=== PATIENT | female | born 1970 | race Caucasian/White ===

== ENCOUNTER 2016-05-21 12:34 | Outpatient (CLI) | payer BC ==
[~2016-05-21 12:34] MED LIST: ESCITALOPRAM OX20 MG PO; IMODIUM A-D2 MG PO; LEVOTHYROXINE75 MCG PO; NABUMETONE500 MG PO; NEURONTIN300 MG PO; OXYBUTYNIN CHLO10 MG PO; PREMPRO1 TA1 PO; PROTONIX40 MG PO; ROPINIROLE HCL1 MG PO
== END 2016-05-21 23:00 ==
LOC: LAB SRH 12:34
DX: Z01.812 Encounter for preprocedural laboratory examination (principal); N39.3 Stress incontinence (female) (male)
CPT/HCPCS: 90047; 90074; 95059

== ENCOUNTER 2016-05-23 08:17 | Day surgery (SDC) | payer BC ==
[~2016-05-23] VITALS: Ht 171.4 cm; Wt 96.0 kg
--- NOTE | 2016-05-23 11:14 | Provider's Discharge Care Plan ---
Problem, Goal, Plan Problem List 1. Stress incontinence Goals: Improve function Instructions: Follow up as directed, Stop smoking
--- NOTE | 2016-05-23 11:14 | Provider's Discharge Care Plan ---
Problem, Goal, Plan Problem List 1. Stress incontinence Goals: Improve function Instructions: Follow up as directed, Stop smoking
--- NOTE | 2016-05-23 12:47 | Operative Report ---
Operative Report Date of Surgery: 05/23/16 Preoperate Diagnosis: stress incontinence Postoperative Diagnosis: stress incontinence Surgeon: Jhon Jacobson MD Pet Care Technician Surgeon: none Procedure Performed: tension-free vaginal tape obturator (TVT-O) sling and cystoscopy Anesthesia: GA Indications: Her assessment to date includes: 1. Vaginal atrophy N95.2 (627.3): 2. Symptomatic menopausal or female climacteric states N95.1 (627.2): 3. Stress incontinence in female N39.3 (625.6): noted on urodynamics The patient is interested in surgical management. She is a candidate for a TVT- obturator mid-urethral sling as stress incontinence is found on UDS testing. The patient signed the consent form. She agreed with the risks, benefits, and alternatives to surgery. The risks included but not limited to recurrence or persistence of prolapse, recurrence of persistence of incontinence, development of voiding dysfunction, development of urinary urgency, urgency incontinence, frequency, and need for intermittent self-catheterization or prolonged indwelling catheterization, injury to other organs including bladder, bowel, nerves or blood vessels. Need for blood transfusion, need for The patient is interested in surgical management. She is a candidate for a TVT-obturator mid-urethral sling as stress incontinence is found on UDS testing. The patient signed the consent form. She agreed with the risks, benefits, and alternatives to surgery. The risks included but not limited to recurrence or persistence of prolapse, recurrence of persistence of incontinence, development of voiding dysfunction, development of urinary urgency, urgency incontinence, frequency, and need for intermittent self-catheterization or prolonged indwelling catheterization, injury to other organs including bladder, bowel, nerves or blood vessels. Need for blood transfusion, need for Surgical Technique: TVT-Obturator sling and cystoscopy. Patient was brought to OR and placed under general anesthetia. Prepped and draped in usual fashion for vaginal surgery with legs in YellowFin stirrups, in the supine position. Given a dose of IV antibiotics. Marcaine 0.25% with epinephrine was infiltrated along the anterior vaginal wall mucosa at the level of the mid urethra. Midline vertical incision was made at that level, 2 periurethral tunnels were created with Metzenbaum scissors. Two stab incisions were created at the skin at the groin at a level 2 cm superior to the external urethral meatus and 2 cm lateral to the fold created between the vulva and thigh. Vizcarra catheter had already been inserted. A butterfly guide was inserted into the right periurethral tunnel, a curved helical needle was inserted on top of the guide and rotated out to the ipsilateral skin incision. The same procedure was performed on the contralateral side. Next the Vizacrra catheter was removed. Cystoscopy was performed. There was no inadvertent penetration of the sling to the vagina, urethra or bladder. The bladder appeared normal. The plastic sheaths of the sling were removed. The bladder was filled with 300 mL of sterile water. Using the Crude maneuver, sling tension was appropriately adjusted. Also a right angle clamp was allowed to easily pass behind the sling so that the sling was placed in a tension-free manner. The sling ends were cut at the level of the skin. The skin was reapproximated using Mastisol, Steri-Strips and band-aids. The vagina was reapproximated using 3-0 Vicryl suture in a running fashion. Packing inserted. Tolerated procedure well. EBL 50 ml. Taken to recovery in stable condition.
[2016-05-23 13:24] VITALS: BP 122/76
== END 2016-05-23 13:48 | disposition home or self-care (01) ==
LOC: OR SRH 08:17 → SCU SRH 08:21 → OR SRH 10:00
PROVIDERS: Obstetrics & Gynecology
PROC: 0TSD0ZZ Reposition Urethra, Open Approach (ICD-10-PCS; principal; 2016-05-23 10:00)
DX: N39.3 Stress incontinence (female) (male) (principal); Z72.0 Tobacco use
CPT/HCPCS: 29229; 29240; 50004; 60001; 70002; 80102; 80212; 82956; 83630; 84038; 90001; 90074; 90155; 91004

== ENCOUNTER 2016-07-06 10:12 | Outpatient (CLI) | payer BC | END 2016-07-06 23:00 | LOC: LAB SRH 10:12 | DX: N93.9 Abnormal uterine and vaginal bleeding, unspecified (principal) | CPT/HCPCS: 90074; 93045; 93069; 93075; 93140; 94001; 94060; 95059 ==

== ENCOUNTER 2016-08-12 10:51 | Outpatient (CLI) | payer BC ==
--- NOTE | 2016-08-12 13:28 | DIAGNOSTIC IMAGING REPORT ---
PROCEDURE: US COMPLETE PELVIC W/TRANSVAG INDICATION: ABNORMAL UTERINE BLEEDING TECHNIQUE: Transabdominal and endovaginal eagle scale sonographic images of the female pelvis were obtained. COMPARISON: None. FINDINGS: TRANSABDOMINAL SCANS: Anteverted uterus measures 4.5 cm in length. Normal contour and echotexture. Normal adnexa without suspicious mass. The visible portion of the urinary bladder is normal. No significant free pelvic fluid. TRANSVAGINAL SCANS: The uterus is anteverted and vertically oriented in position and has a fairly homogeneous myometrial echotexture. There are a few small Nabothian cysts in the cervix. The uterus measures about 4.7 x 3.2 x 2.5 cm. The fundus is slightly retroflexed. The visible fundal endometrium measures about 5.4 mm in thickness. No endometrial fluid collections or suspicious masses. The ovaries were not seen. No suspicious adnexal masses or free pelvic fluid. IMPRESSION: 1. The fundal endometrium was suboptimally seen secondary to slight retroflexion of the uterine fundus. Nonetheless, it is estimated to be at the upper limits of normal for postmenopausal female with uterine bleeding. 2. Nonvisualization of either ovary.
== END 2016-08-12 23:00 ==
LOC: US SRH 10:51
DX: N93.9 Abnormal uterine and vaginal bleeding, unspecified (principal)

== ENCOUNTER 2016-10-01 15:26 | Emergency (ER) | payer BC ==
--- NOTE | 2016-10-01 17:18 | DIAGNOSTIC IMAGING REPORT ---
PROCEDURE: XR CHEST 1 VIEW INDICATION: CHEST PAIN TECHNIQUE: Portable AP view (1605 hours). COMPARISON: None. FINDINGS: Allowing for overlying wires and electrodes, lungs are clear. Heart and mediastinum are normal. Mild dextroscoliosis of mid thoracic spine. IMPRESSION: 1. Negative chest.
--- NOTE | 2016-10-01 17:37 | ED NURSING NOTES ---
Clinical Report - Nurses [facility] [place] [address] 10/01/2016 15:27 Patient: GINNY BOLAÑOS TRIAGE Acuity: LEVEL 2. Chief Complaint: CHEST PAIN and (weakness). Alert. No acute distress. SEPSIS SCREEN: Sepsis Screen. Negative (no infection suspected/documented). --15:53 Lynn Miller R.N. 15:44 10/01/16. BP: 143/80. HR: 95. RR: 18. O2 saturation: 95% on room air. Temp: 98 F (oral). Pain level now: 0/10. --15:53 Lynn Miller R.N. Weight: 92.5 kg stated. Height/Length: 67 inches Per Patient. BMI: 32. --15:51 Lynn Miller R.N. Medications Oxybutynin Chloride Oral. --15:46 Lynn Miller R.N. Levothyroxine Sodium Oral. --15:46 Lynn Miller R.N. Gabapentin Oral. --15:46 Lynn Miller R.N. Imodium Advanced Oral. --15:46 Lynn Miller R.N. Omeprazole Oral. --15:47 Lynn Miller R.N. Medication/allergy information source: the patient. --15:53 Lynn Miller R.N. Allergies morphine. --15:47 Lynn Miller R.N. Penicillins. --15:47 Lynn Miller R.N. History Arrived by private vehicle. Historian: patient. Accompanied by (aunt). Primary physician ([facility] [place] [facility]). This started yesterday. Describes the quality as sharp. Relates location as in the central chest area and right and left arm. Notes pain level as 0/10 on arrival. She has had difficulty breathing. Reports experiencing sweating episodes. No nausea or vomiting. Treatment QUALITY PROCESS LEAD: None. SOCIAL HX: Heavy tobacco smoker (cigarette)- 1 pack per day. Occasional alcohol use. History of drug use: marijuana. (CBD oil). FALL RISK ASSESSMENT: Fall risk assessment completed. No fall risk identified. NUTRITIONAL RISK ASSESSMENT: The nutritional risk assessment revealed no deficiencies. FUNCTIONAL ASSESSMENT: Functional assessment: no impairments noted. LEARNING NEEDS ASSESSMENT: The learning needs assessment revealed no barriers. SKIN INTEGRITY ASSESSMENT: Skin integrity risk assessment completed. No skin integrity risk identified. --15:53 Lynn Miller R.N. PROBLEMS: Lupus. Thyroid Disease. Fibromyalgia. --15:49 Lynn Miller R.N. ADDITIONAL SURGERIES: Bladder mesh. . Foot surgery. Shoulder Surgery. Tubal Ligation. --15:49 Lynn Miller R.N. Assessment GENERAL / NEURO / PSYCH: Alert. Oriented X 4. Appears in no acute distress. Patient appears calm and cooperative. RESPIRATORY: Respirations not labored. CVS: Normal sinus rhythm noted. Capillary refill less than 2 seconds. GI / : Abdomen soft and nontender. SKIN: Mucous membranes are pink. Skin is warm and dry. --15:53 Lynn Miller R.N. Interventions ID band on patient. To treatment room. Transported via wheelchair. --15:53 Lynn Miller R.N. PHYSICAL ASSESSMENT 15:54 10/01/16. To room via wheelchair. GENERAL / NEURO / PSYCH: Alert. Oriented X 4. Appears in no acute distress. HEENT: Mucous membranes are pink. RESPIRATORY: Respirations not labored. CVS: Normal sinus rhythm noted. Capillary refill less than 2 seconds. GI / : Abdomen soft and nontender. EXTREMITIES: No lower extremity edema. SKIN: Skin is warm and dry. Normal skin turgor. Skin is non-tender. --15:54 Lynn Miller R.N. NURSING PROGRESS NOTES 15:53 10/01/16. Oxygen administered by nasal cannula at 2 liters. groundwater monitoring technician, pulse oximeter and NIBP monitor placed on patient; personnel monitor- Lead II; monitor alarms on. Patient gowned. Two patient identifiers checked. Call light placed in reach. Side rails up x 1. Bed placed in lowest position. Brakes of bed on. Patient ready for evaluation- chart flagged and ED physician and PSYCHOLOGICAL OPERATIONS SPECIALIST notified. --15:53 Lynn Miller R.N. 15:55 10/01/2016 Site #1 started via IV in the right antecubital space with an 20g angiocath, with aseptic technique and good blood return; one attempt. Saline lock flushed with 10 mL saline. --15:55 Lynn Miller R.N. <<STRICKEN ENTRY-- EKG time: (1548). EKG was ordered, performed by a tech and shown to the ED physician. --16:32 Hector Negro ER Tech1 --END STRIKE>> Correction --16:33 Hector Negro ER Tech1 EKG time: (1548). EKG was ordered, performed by a tech and shown to the PSYCHOLOGICAL OPERATIONS SPECIALIST. --16:33 Hector Negro ER Tech1 17:29 10/01/16. BP: 115/75. HR: 88. RR: 16. O2 saturation: 95% on nasal cannula at 2 liters/minute. --17:29 Lynn Miller R.N. DISPOSITION / DISCHARGE Departure time: 18:00 Oct 01 2016. Condition at departure: improved and stable. No learning barriers present. Discharge instructions provided and reviewed with the patient. Reviewed medication(s). Prescription(s) given to the patient. Patient verbalized understanding. Written instructions provided in Kiswahili. The patient was discharged by the nurse practitioner. She was discharged home and accompanied by family. She left the Emergency Department ambulatory and via private vehicle. Family member driving. --18:16 Lynn Miller R.N. 18:14 10/01/16. BP: 122/76. HR: 86. RR: 18. O2 saturation: 100% on room air. Temp: 98.2 F (oral). Pain level now: 0/10. --18:16 Lynn Miller R.N. 18:00 10/01/2016 Site #1 removed upon discharge. Catheter intact. Manual pressure and bandage applied. --18:16 Lynn Miller R.N. Locked/Released at 10/01/2016 18:16 by Lynn Miller R.N.
--- NOTE | 2016-10-01 17:37 | ED ORDER SUMMARY ---
..... Patient: GINNY BOLAÑOS OrderSheet VisitID: [id number] [address] [place] [address] 45y, F Registration Date/Time: 10/01/2016 ORDER SHEET Weight: 92.5 kg (stated) Allergies: morphine, Penicillins GENERAL ORDERS: Chest 1V Urgent (15:55 10/01/2016 MWinterer R.N. per protocol) (Ack 16:02 PWeiler ER Tech1) (16:08 Richard) Scientific Research Associate (Continuous) (15:56 10/01/2016 MWinterer R.N. per protocol) (15:56 MWinterer R.N.) Cardiac Panel Stat (15:56 10/01/2016 MWinterer R.N. per protocol) (Ack 16:02 PWeiler ER Tech1) (16:15 MWinterer R.N.) Oxygen (2 L/min) (NC) (15:56 10/01/2016 MWinterer R.N. per protocol) (15:56 MWinterer R.N.) Pulse oximeter (15:56 10/01/2016 MWinterer R.N. per protocol) (15:56 MWinterer R.N.) EKG - ER Stat (15:56 10/01/2016 MWinterer R.N. per protocol) (15:56 MWinterer R.N.) MEDICATION ORDERS: IV FLUIDS: IV Saline Lock (15:56 10/01/2016 MWinterer R.N. per protocol) (15:56 MWinterer R.N.) ORDER SHEET NOTES: [Electronically signed by Lynn Miller R.N. (18:16 10/01/2016)] [Electronically signed by Kristin Humphries (22:58 10/01/2016)] [Electronically locked/signed by Lynn Miller R.N. (18:16 10/01/2016)]
--- NOTE | 2016-10-01 17:37 | ED ORDER SUMMARY ---
..... Patient: GINNY BOLAÑOS OrderSheet [facility] VisitID: [id number] [address] [place] [address] 45y, F Registration Date/Time: 10/01/2016 ORDER SHEET Weight: 92.5 kg (stated) Allergies: morphine, Penicillins GENERAL ORDERS: Chest 1V Urgent (15:55 10/01/2016 MWinterer R.N. per protocol) (Ack 16:02 PWeiler ER Tech1) (16:08 Richard) Solid State Tester (Continuous) (15:56 10/01/2016 MWinterer R.N. per protocol) (15:56 MWinterer R.N.) Cardiac Panel Stat (15:56 10/01/2016 MWinterer R.N. per protocol) (Ack 16:02 PWeiler ER Tech1) (16:15 MWinterer R.N.) Oxygen (2 L/min) (NC) (15:56 10/01/2016 MWinterer R.N. per protocol) (15:56 MWinterer R.N.) Pulse oximeter (15:56 10/01/2016 MWinterer R.N. per protocol) (15:56 MWinterer R.N.) EKG - ER Stat (15:56 10/01/2016 MWinterer R.N. per protocol) (15:56 MWinterer R.N.) MEDICATION ORDERS: IV FLUIDS: IV Saline Lock (15:56 10/01/2016 MWinterer R.N. per protocol) (15:56 MWinterer R.N.) ORDER SHEET NOTES: [Electronically signed by Lynn Miller R.N. (18:16 10/01/2016)] [Electronically signed by Kristin Humphries (22:58 10/01/2016)] [Electronically locked/signed by Lynn Miller R.N. (18:16 10/01/2016)]
--- NOTE | 2016-10-01 17:37 | ED NURSING NOTES ---
Clinical Report - Nurses [facility] [place] [address] 10/01/2016 15:27 Patient: GINNY BOLAÑOS TRIAGE Acuity: LEVEL 2. Chief Complaint: CHEST PAIN and (weakness). Alert. No acute distress. SEPSIS SCREEN: Sepsis Screen. Negative (no infection suspected/documented). --15:53 Lynn Miller R.N. 15:44 10/01/16. BP: 143/80. HR: 95. RR: 18. O2 saturation: 95% on room air. Temp: 98 F (oral). Pain level now: 0/10. --15:53 Lynn Miller R.N. Weight: 92.5 kg stated. Height/Length: 67 inches Per Patient. BMI: 32. --15:51 Lynn Miller R.N. Medications Oxybutynin Chloride Oral. --15:46 Lynn Miller R.N. Levothyroxine Sodium Oral. --15:46 Lynn Miller R.N. Gabapentin Oral. --15:46 Lynn Miller R.N. Imodium Advanced Oral. --15:46 Lynn Miller R.N. Omeprazole Oral. --15:47 Lynn Miller R.N. Medication/allergy information source: the patient. --15:53 Lynn Miller R.N. Allergies morphine. --15:47 Lynn Miller R.N. Penicillins. --15:47 Lynn Miller R.N. History Arrived by private vehicle. Historian: patient. Accompanied by (aunt). Primary physician ([facility] [place] [facility]). This started yesterday. Describes the quality as sharp. Relates location as in the central chest area and right and left arm. Notes pain level as 0/10 on arrival. She has had difficulty breathing. Reports experiencing sweating episodes. No nausea or vomiting. Treatment DIESEL FITTER MECHANIC: None. SOCIAL HX: Heavy tobacco smoker (cigarette)- 1 pack per day. Occasional alcohol use. History of drug use: marijuana. (CBD oil). FALL RISK ASSESSMENT: Fall risk assessment completed. No fall risk identified. NUTRITIONAL RISK ASSESSMENT: The nutritional risk assessment revealed no deficiencies. FUNCTIONAL ASSESSMENT: Functional assessment: no impairments noted. LEARNING NEEDS ASSESSMENT: The learning needs assessment revealed no barriers. SKIN INTEGRITY ASSESSMENT: Skin integrity risk assessment completed. No skin integrity risk identified. --15:53 Lynn Miller R.N. PROBLEMS: Lupus. Thyroid Disease. Fibromyalgia. --15:49 Lynn Miller R.N. ADDITIONAL SURGERIES: Bladder mesh. . Foot surgery. Shoulder Surgery. Tubal Ligation. --15:49 Lynn Miller R.N. Assessment GENERAL / NEURO / PSYCH: Alert. Oriented X 4. Appears in no acute distress. Patient appears calm and cooperative. RESPIRATORY: Respirations not labored. CVS: Normal sinus rhythm noted. Capillary refill less than 2 seconds. GI / : Abdomen soft and nontender. SKIN: Mucous membranes are pink. Skin is warm and dry. --15:53 Lynn Miller R.N. Interventions ID band on patient. To treatment room. Transported via wheelchair. --15:53 Lynn Miller R.N. PHYSICAL ASSESSMENT 15:54 10/01/16. To room via wheelchair. GENERAL / NEURO / PSYCH: Alert. Oriented X 4. Appears in no acute distress. HEENT: Mucous membranes are pink. RESPIRATORY: Respirations not labored. CVS: Normal sinus rhythm noted. Capillary refill less than 2 seconds. GI / : Abdomen soft and nontender. EXTREMITIES: No lower extremity edema. SKIN: Skin is warm and dry. Normal skin turgor. Skin is non-tender. --15:54 Lynn Miller R.N. NURSING PROGRESS NOTES 15:53 10/01/16. Oxygen administered by nasal cannula at 2 liters. litigation legal assistant, pulse oximeter and NIBP monitor placed on patient; cardiac catheterization technologist- Lead II; monitor alarms on. Patient gowned. Two patient identifiers checked. Call light placed in reach. Side rails up x 1. Bed placed in lowest position. Brakes of bed on. Patient ready for evaluation- chart flagged and ED physician and OVERLOCK OPERATOR notified. --15:53 Lynn Miller R.N. 15:55 10/01/2016 Site #1 started via IV in the right antecubital space with an 20g angiocath, with aseptic technique and good blood return; one attempt. Saline lock flushed with 10 mL saline. --15:55 Lynn Miller R.N. <<STRICKEN ENTRY-- EKG time: (1548). EKG was ordered, performed by a tech and shown to the ED physician. --16:32 Hector Negro ER Tech1 --END STRIKE>> Correction --16:33 Hector Negro ER Tech1 EKG time: (1548). EKG was ordered, performed by a tech and shown to the OVERLOCK OPERATOR. --16:33 Hector Negro ER Tech1 17:29 10/01/16. BP: 115/75. HR: 88. RR: 16. O2 saturation: 95% on nasal cannula at 2 liters/minute. --17:29 Lynn Miller R.N. DISPOSITION / DISCHARGE Departure time: 18:00 Oct 01 2016. Condition at departure: improved and stable. No learning barriers present. Discharge instructions provided and reviewed with the patient. Reviewed medication(s). Prescription(s) given to the patient. Patient verbalized understanding. Written instructions provided in Azeri. The patient was discharged by the nurse practitioner. She was discharged home and accompanied by family. She left the Emergency Department ambulatory and via private vehicle. Family member driving. --18:16 Lynn Miller R.N. 18:14 10/01/16. BP: 122/76. HR: 86. RR: 18. O2 saturation: 100% on room air. Temp: 98.2 F (oral). Pain level now: 0/10. --18:16 Lynn Miller R.N. 18:00 10/01/2016 Site #1 removed upon discharge. Catheter intact. Manual pressure and bandage applied. --18:16 yLnn Miller R.N. Locked/Released at 10/01/2016 18:16 by Lynn Miller R.N.
--- NOTE | 2016-10-01 17:37 | ED CLINICAL REPORT ---
Clinical Report - Physicians/Mid Levels [facility] [address] [place] [address] 10/01/2016 15:27 Patient: GINNY BOLAÑOS Time Seen: 1602; initial patient contact, initial documentation, patient care assumed. Arrived- By private vehicle. Historian- patient. HISTORY OF PRESENT ILLNESS Chief Complaint: CHEST PAIN. At its maximum, severity described as severe. When seen in the E.D., severity described as severe. Modifying factors. Not worsened by anything. Not relieved by anything. This started yesterday and is still present. It was abrupt in onset and has been intermittent. Onset during rest. It is described as sharp, "pain" and well localized and it is described as located in the central chest area and radiating to the right arm and to the left arm. No nausea or vomiting. She has had difficulty breathing and has experienced diaphoresis. Similar symptoms previously: None. Recent medical care: Not recently seen/assessed. REVIEW OF SYSTEMS No fever or cough. All systems otherwise negative, except as recorded above. PAST HISTORY See nurses notes. PROBLEMS: Lupus. Thyroid Disease. Fibromyalgia. --15:49 Lynn Miller R.N. ADDITIONAL SURGERIES: Bladder mesh. . Foot surgery. Shoulder Surgery. Tubal Ligation. --15:49 Lynn Miller R.N. SOCIAL HISTORY Heavy tobacco smoker. Occasional alcohol use. History of heavy drug use: marijuana. Recently used drugs yesterday. No recent travel. Is a local resident. FAMILY HISTORY History of heart disease in multiple family members in first-degree relative (mother). ADDITIONAL NOTES The nursing notes have been reviewed with agreement regarding the chief complaint, HPI, ROS, PMH and patient medications and allergies. PHYSICAL EXAM Vital Signs: 10/01/2016 15:44 BP: 143/80. HR: 95. RR: 18. O2 saturation: 95%. Temp: 98 F. Pain level now: 0/10. Have been reviewed as normal and appear to be correct. Appearance: Alert. Oriented X3. No acute distress. Eyes: Pupils equal, round and reactive to light. Eyes normal inspection. Neck: Normal inspection. Neck supple. CVS: Normal heart rate and rhythm. Heart sounds normal. Pulses normal. Respiratory: No respiratory distress. Chest tender. Chest pain reproducible with palpation of the sternum and with deep breathing. Breath sounds normal. Abdomen: Mildly obese. Back: Normal external inspection. Skin: Skin warm and dry. Normal skin color. No rash. Normal skin turgor. Extremities: Extremities exhibit normal ROM. No lower extremity edema. Neuro: Oriented X 3. No motor deficit. No sensory deficit. LABS, X-RAYS, AND EKG EKG: EKG time: (1548). No acute process. No acute ischemia. Normal EKG. Rate: 88. Normal EKG. The study has been interpreted contemporaneously by me (and Dr Cohen). The EKG appears to be a good tracing. Chest X-ray: Normal Chest X-Ray. (IMPRESSION: 1. Negative chest. Electronically Final signed by:Poncho Quiñonez MD 10/01/2016 5:12:31 PM). The X-rays were interpreted by the radiologist and contemporaneously by me. Interpretation time: 17:30. Laboratory Tests: CBC w Diff: (JESSICA: 10/01/2016 16:02) ( MsgRcvd 10/01/2016 16:17) Final results Test Result Flag Units (Reference) WHITE BLOOD COUNT 15.3 H K/uL (4.5-11.5) RED BLOOD COUNT 4.92 M/uL (4.00-5.20) HEMOGLOBIN 15.2 gm/dL (12.0-16.0) HEMATOCRIT 45.4 % (36.0-46.0) MEAN CELL VOLUME 92 fL (80-100) MEAN CORPUSCULAR HGB 31 pg (26-34) MEAN CORPUSCULAR HGB CONC 34 g/dL (31-37) RED CELL DISTRIBUTION WIDTH 15.1 H % (11.6-14.8) PLATELET COUNT 195 K/uL (150-400) NEUTROPHIL % 73.3 % (50-75) LYMPH % 19.1 L % (25-40) MONO % 5.5 % (3-14) EOSINOPHIL % 1.6 % (0-4) BASOPHIL % 0.5 % (0-2) CHEM 13 PANEL: (JESSICA: 10/01/2016 16:02) ( MsgRcvd 10/01/2016 16:28) Final results Test Result Flag Units (Reference) GLUCOSE 173 H mg/dL (70-110) BUN 13 mg/dL (7-18) CREATININE 1.1 mg/dL (0.6-1.3) Estimated GFR 56.59 mL/min Estimated GFR- >60 mL/min Note: Persistent reduction over 3 months in eGFR<60 mL/min/1.73 m2 defines CKD. Patients with eGFR values>=60 mL/min/1.73 m2 may also have CKD if evidence ofpersistent proteinuria. Additional information may be foundat [email or web address].org. SODIUM 140 mmol/L (136-145) POTASSIUM 3.6 mmol/L (3.5-5.1) CHLORIDE 103 mmol/L (98-107) CARBON DIOXIDE 31 mmol/L (21-32) CALCIUM 9.0 mg/dL (8.5-10.1) TOTAL PROTEIN 6.7 g/dL (6.4-8.2) ALBUMIN 3.4 g/dL (3.3-5.0) BILIRUBIN, TOTAL 0.4 mg/dL (0.0-1.0) ALKALINE PHOSPHATASE 75 U/L (46-116) AST (SGOT) 13 L U/L (15-37) ALT (SGPT) 40 U/L (12-78) MAGNESIUM 2.0 mg/dL (1.8-2.4) CPK 65 U/L (24-260) TROPONIN I <0.05 L ng/mL (0.00-1.5) TROPONIN REFERENCE RANGE:<0.1 NEGATIVE0.1-1.5 INDETERMINANT>1.5 POSITIVE . PROGRESS AND PROCEDURES Course of Care: 16:29 10/01/16. pt has ludivina for some narcs and #2 er visits, last rx 7/ oxycodone 5mg #30, see report for full details 1731. pt asleep, awakened to discuss results. 10/01/2016 17:29 BP: 115/75. HR: 88. RR: 16. O2 saturation: 95%. Vital Signs: have been reviewed as normal and appear to be correct. Patient counseled in person regarding the patient's stable condition, test results and diagnosis. 17:31. Differential Diagnosis: I considered muscle strain, costochondritis, myositis, pleurisy, myocardial infarction, intermediate coronary syndrome, unstable angina, angina, aortic dissection, mitral valve prolapse, pericarditis, pulmonary embolism, pneumonia, pneumothorax, lung cancer, gastroesophageal reflux disease, esophagitis and esophageal spasm as a possible cause of chest pain in this patient. This is a partial list of diagnoses considered. (anxiety, substance abuse). Above considerations are based on history, physical exam, reassessment, laboratory data, X-Ray data and EKG. Differential diagnosis was discussed with patient. Disposition: Discharged home in good and improved condition (17:36). Condition: good and stable. CLINICAL IMPRESSION Chest wall pain .12 lead EKG performed. INSTRUCTIONS Apply dry and moist heat for 20 minutes four times a day for two days until better. Don't use while asleep and don't use high setting on heating pad. Avoid stimulants (such as cigarettes, coffee, cold medicines, sinus medicines, street drugs). Warnings: GENERAL WARNINGS: Return or contact your physician immediately if your condition worsens or changes unexpectedly, if not improving as expected, or if other problems arise. SPECIFICALLY, return if you develop chest, neck, jaw, shoulder, arm, or back pain, difficulty breathing, a fluttering sensation in your chest, lightheadedness, fainting, excessive fatigue, or sudden sweating. Prescription Medications: Naproxen 500 mg tablets: take 1 orally every 12 hours as needed for pain. Dispense twenty (20). No refills. Follow-up: Follow up with your doctor in about two days even if well. Call for an appointment. Summary of care provided to patient. Understanding of the discharge instructions verbalized by patient. (Electronically signed by Kristin Humphries A.R.N.P. 10/01/2016 22:58)
--- NOTE | 2016-10-01 22:58 | ED MED RECONCILIATION SUMMARY ---
Patient: GINNY BOLAÑOS Medication Reconciliation Report [facility] VisitID: [id number] [address] [place] [address] 45y, F Registration Date/Time: 10/01/2016 Weight: 92.5 kg Height/Length: 67 in. BMI: 32.0 ALLERGIES: morphine, Penicillins The patient's Home Medications are listed below: THE FOLLOWING MEDICATIONS NEED TO BE RECONCILED: Gabapentin Oral Imodium Advanced Oral Levothyroxine Sodium Oral Omeprazole Oral Oxybutynin Chloride Oral The source(s) of the original Home Medication information: patient The following Medications were given to the patient in the Emergency Department: None. The following Medications were prescribed to the patient: Naproxen 500 mg tablets: take 1 orally every 12 hours as needed for pain. Dispense twenty (20). No refills. -- Kristin Humphries A.R.N.P.
--- NOTE | 2016-10-01 22:58 | ED MAR SUMMARY ---
..... Medication Administration Record [facility] [address] [place], [place] [id number] Patient: GINNY BOLAÑOS Visit ID: [id number] 45y, F Weight: 92.5 kg Height/Length: 67 in BMI: 32 ALLERGIES: Penicillins, morphine
--- NOTE | 2016-10-01 22:58 | ED MED RECONCILIATION SUMMARY ---
Patient: GINNY BOLAÑOS Medication Reconciliation Report [facility] VisitID: [id number] [address] [place] [address] 45y, F Registration Date/Time: 10/01/2016 Weight: 92.5 kg Height/Length: 67 in. BMI: 32.0 ALLERGIES: morphine, Penicillins The patient's Home Medications are listed below: THE FOLLOWING MEDICATIONS NEED TO BE RECONCILED: Gabapentin Oral Imodium Advanced Oral Levothyroxine Sodium Oral Omeprazole Oral Oxybutynin Chloride Oral The source(s) of the original Home Medication information: patient The following Medications were given to the patient in the Emergency Department: None. The following Medications were prescribed to the patient: Naproxen 500 mg tablets: take 1 orally every 12 hours as needed for pain. Dispense twenty (20). No refills. -- Kristin Humphries A.R.N.P.
--- NOTE | 2016-10-01 22:58 | ED DISCHARGE INSTRUCTIONS ---
Patient: GINNY BOLAÑOS General Instructions [facility] VisitID: [id number] [place] [address] 45y, F Registration Date/Time: 10/01/2016 Chest wall pain .12 lead EKG performed. INSTRUCTIONS Apply dry and moist heat for 20 minutes four times a day for two days until better. Don't use while asleep and don't use high setting on heating pad. Avoid stimulants (such as cigarettes, coffee, cold medicines, sinus medicines, street drugs). Warnings: GENERAL WARNINGS: Return or contact your physician immediately if your condition worsens or changes unexpectedly, if not improving as expected, or if other problems arise. SPECIFICALLY, return if you develop chest, neck, jaw, shoulder, arm, or back pain, difficulty breathing, a fluttering sensation in your chest, lightheadedness, fainting, excessive fatigue, or sudden sweating. Prescription Medications: Naproxen 500 mg tablets: take 1 orally every 12 hours as needed for pain. Dispense twenty (20). No refills. Follow-up: Follow up with your doctor in about two days even if well. Call for an appointment. Summary of care provided to patient. Understanding of the discharge instructions verbalized by patient. ADDITIONAL INFORMATION Chest Wall Pain: Costochondritis The chest pain that you have had today is caused by Costochondritis. This condition is due to an inflammation of the cartilage joining the ribs to the breastbone. It is not caused by heart or lung problems. Although the exact cause for costochondritis is not known, it often occurs during times of emotional stress. It can be painful, but it is not dangerous. It usually disappears within one to two weeks, but may recur. Rarely, a more serious condition may cause symptoms similar to costochondritis; therefore, watch for the warning signs listed below. Home Care: If you feel that emotional stress is a cause of your condition, try to identify sources of that stress. It may not be obvious! Learn ways to deal with the stress in your life such as regular exercise, muscle relaxation, meditation, or simply taking time out for yourself. For more information about this, consult your doctor or go to a local bookstore and review books and tapes available on the subject of stress reduction. You may use acetaminophen (Tylenol) or ibuprofen (Motrin, Advil) to control pain, unless another pain medicine was prescribed. [ NOTE: If you have liver disease or ever had a stomach ulcer, talk with your doctor before using these medicines.] The use of heat (hot wet compress or heating pad) with or without local analgesic creams (Deep Heat Rub, Thomas Leon) will be helpful to reduce pain. Follow Up with your doctor as directed or sooner if you do not start to improve within the next two days. Get Prompt Medical Attention if any of the following occur: A change in the type of pain: if it feels different, becomes more severe, lasts longer, or spreads into your shoulder, arm, neck, jaw or back Shortness of breath or increased pain with breathing Weakness, dizziness, or fainting Cough with dark colored sputum (phlegm) or blood Abdominal pain Dark red or black stools Fever of 100.4F (38C) or higher, or as directed by your healthcare provider Naproxen Sodium Oral tablet What is this medicine? NAPROXEN (na PROX en) is a non-steroidal anti-inflammatory drug (NSAID). It is used to reduce swelling and to treat pain. This medicine may be used for dental pain, headache, or painful monthly periods. It is also used for painful joint and muscular problems such as arthritis, tendinitis, bursitis, and gout. How should I use this medicine? Take this medicine by mouth with a glass of water. Follow the directions on the prescription label. Take it with food if your stomach gets upset. Try to not lie down for at least 10 minutes after you take it. Take your medicine at regular intervals. Do not take your medicine more often than directed. Long-term, continuous use may increase the risk of heart attack or stroke. A special MedGuide will be given to you by the pharmacist with each prescription and refill. Be sure to read this information carefully each time. Talk to your supervisor parach[employer] manufacturing regarding the use of this medicine in children. Special care may be needed. What side effects may I notice from receiving this medicine? Side effects that you should report to your doctor or health vehicle care specialist as soon as possible: black or bloody stools, blood in the urine or vomit blurred vision chest pain difficulty breathing or wheezing nausea or vomiting severe stomach pain skin rash, skin redness, blistering or peeling skin, hives, or itching slurred speech or weakness on one side of the body swelling of eyelids, throat, lips unexplained weight gain or swelling unusually weak or tired yellowing of eyes or skin Side effects that usually do not require medical attention (report to your doctor or health vehicle care specialist if they continue or are bothersome): constipation headache heartburn What may interact with this medicine? alcohol aspirin cidofovir diuretics lithium methotrexate other drugs for inflammation like ketorolac or prednisone pemetrexed probenecid warfarin What if I miss a dose? If you miss a dose, take it as soon as you can. If it is almost time for your next dose, take only that dose. Do not take double or extra doses. Where should I keep my medicine? Keep out of the reach of children. Store at room temperature between 15 and 30 degrees C (59 and 86 degrees F). Keep container tightly closed. Throw away any unused medicine after the expiration date. What should I tell my health care provider before I take this medicine? They need to know if you have any of these conditions: asthma cigarette smoker drink more than 3 alcohol containing drinks a day heart disease or circulation problems such as heart failure or leg edema (fluid retention) high blood pressure kidney disease liver disease stomach bleeding or ulcers an unusual or allergic reaction to naproxen, aspirin, other NSAIDs, other medicines, foods, dyes, or preservatives or trying to get breast-feeding What should I watch for while using this medicine? Tell your doctor or health vehicle care specialist if your pain does not get better. Talk to your doctor before taking another medicine for pain. Do not treat yourself. This medicine does not prevent heart attack or stroke. In fact, this medicine may increase the chance of a heart attack or stroke. The chance may increase with longer use of this medicine and in people who have heart disease. If you take aspirin to prevent heart attack or stroke, talk with your doctor or health vehicle care specialist. Do not take other medicines that contain aspirin, ibuprofen, or naproxen with this medicine. Side effects such as stomach upset, nausea, or ulcers may be more likely to occur. Many medicines available without a prescription should not be taken with this medicine. This medicine can cause ulcers and bleeding in the stomach and intestines at any time during treatment. Do not smoke cigarettes or drink alcohol. These increase irritation to your stomach and can make it more susceptible to damage from this medicine. Ulcers and bleeding can happen without warning symptoms and can cause . You may get drowsy or dizzy. Do not drive, use machinery, or do anything that needs mental alertness until you know how this medicine affects you. Do not stand or sit up quickly, especially if you are an older patient. This reduces the risk of dizzy or fainting spells. This medicine can cause you to bleed more easily. Try to avoid damage to your teeth and gums when you brush or floss your teeth. You have been given the following additional information: Chest Wall Pain, Costochondritis Naproxen Sodium Oral tablet (Electronically signed by Kristin Humphries A.R.N.P. 10/01/2016 22:58)
--- NOTE | 2016-10-01 22:58 | ED MAR SUMMARY ---
..... Medication Administration Record [facility] [address] [place], [place] [id number] Patient: GINNY BOLAÑOS Visit ID: [id number] 45y, F Weight: 92.5 kg Height/Length: 67 in BMI: 32 ALLERGIES: Penicillins, morphine
--- NOTE | 2016-10-01 22:58 | ED DISCHARGE INSTRUCTIONS ---
Patient: GINNY BOLAÑOS General Instructions [facility] VisitID: [id number] Moraima [place] [address] 45y, F Registration Date/Time: 10/01/2016 Chest wall pain .12 lead EKG performed. INSTRUCTIONS Apply dry and moist heat for 20 minutes four times a day for two days until better. Don't use while asleep and don't use high setting on heating pad. Avoid stimulants (such as cigarettes, coffee, cold medicines, sinus medicines, street drugs). Warnings: GENERAL WARNINGS: Return or contact your physician immediately if your condition worsens or changes unexpectedly, if not improving as expected, or if other problems arise. SPECIFICALLY, return if you develop chest, neck, jaw, shoulder, arm, or back pain, difficulty breathing, a fluttering sensation in your chest, lightheadedness, fainting, excessive fatigue, or sudden sweating. Prescription Medications: Naproxen 500 mg tablets: take 1 orally every 12 hours as needed for pain. Dispense twenty (20). No refills. Follow-up: Follow up with your doctor in about two days even if well. Call for an appointment. Summary of care provided to patient. Understanding of the discharge instructions verbalized by patient. ADDITIONAL INFORMATION Chest Wall Pain: Costochondritis The chest pain that you have had today is caused by Costochondritis. This condition is due to an inflammation of the cartilage joining the ribs to the breastbone. It is not caused by heart or lung problems. Although the exact cause for costochondritis is not known, it often occurs during times of emotional stress. It can be painful, but it is not dangerous. It usually disappears within one to two weeks, but may recur. Rarely, a more serious condition may cause symptoms similar to costochondritis; therefore, watch for the warning signs listed below. Home Care: If you feel that emotional stress is a cause of your condition, try to identify sources of that stress. It may not be obvious! Learn ways to deal with the stress in your life such as regular exercise, muscle relaxation, meditation, or simply taking time out for yourself. For more information about this, consult your doctor or go to a local bookstore and review books and tapes available on the subject of stress reduction. You may use acetaminophen (Tylenol) or ibuprofen (Motrin, Advil) to control pain, unless another pain medicine was prescribed. [ NOTE: If you have liver disease or ever had a stomach ulcer, talk with your doctor before using these medicines.] The use of heat (hot wet compress or heating pad) with or without local analgesic creams (Deep Heat Rub, Thomas Leon) will be helpful to reduce pain. Follow Up with your doctor as directed or sooner if you do not start to improve within the next two days. Get Prompt Medical Attention if any of the following occur: A change in the type of pain: if it feels different, becomes more severe, lasts longer, or spreads into your shoulder, arm, neck, jaw or back Shortness of breath or increased pain with breathing Weakness, dizziness, or fainting Cough with dark colored sputum (phlegm) or blood Abdominal pain Dark red or black stools Fever of 100.4F (38C) or higher, or as directed by your healthcare provider Naproxen Sodium Oral tablet What is this medicine? NAPROXEN (na PROX en) is a non-steroidal anti-inflammatory drug (NSAID). It is used to reduce swelling and to treat pain. This medicine may be used for dental pain, headache, or painful monthly periods. It is also used for painful joint and muscular problems such as arthritis, tendinitis, bursitis, and gout. How should I use this medicine? Take this medicine by mouth with a glass of water. Follow the directions on the prescription label. Take it with food if your stomach gets upset. Try to not lie down for at least 10 minutes after you take it. Take your medicine at regular intervals. Do not take your medicine more often than directed. Long-term, continuous use may increase the risk of heart attack or stroke. A special MedGuide will be given to you by the pharmacist with each prescription and refill. Be sure to read this information carefully each time. Talk to your certified [employer] administrator regarding the use of this medicine in children. Special care may be needed. What side effects may I notice from receiving this medicine? Side effects that you should report to your doctor or health pet care assistant as soon as possible: black or bloody stools, blood in the urine or vomit blurred vision chest pain difficulty breathing or wheezing nausea or vomiting severe stomach pain skin rash, skin redness, blistering or peeling skin, hives, or itching slurred speech or weakness on one side of the body swelling of eyelids, throat, lips unexplained weight gain or swelling unusually weak or tired yellowing of eyes or skin Side effects that usually do not require medical attention (report to your doctor or health pet care assistant if they continue or are bothersome): constipation headache heartburn What may interact with this medicine? alcohol aspirin cidofovir diuretics lithium methotrexate other drugs for inflammation like ketorolac or prednisone pemetrexed probenecid warfarin What if I miss a dose? If you miss a dose, take it as soon as you can. If it is almost time for your next dose, take only that dose. Do not take double or extra doses. Where should I keep my medicine? Keep out of the reach of children. Store at room temperature between 15 and 30 degrees C (59 and 86 degrees F). Keep container tightly closed. Throw away any unused medicine after the expiration date. What should I tell my health care provider before I take this medicine? They need to know if you have any of these conditions: asthma cigarette smoker drink more than 3 alcohol containing drinks a day heart disease or circulation problems such as heart failure or leg edema (fluid retention) high blood pressure kidney disease liver disease stomach bleeding or ulcers an unusual or allergic reaction to naproxen, aspirin, other NSAIDs, other medicines, foods, dyes, or preservatives or trying to get breast-feeding What should I watch for while using this medicine? Tell your doctor or health pet care assistant if your pain does not get better. Talk to your doctor before taking another medicine for pain. Do not treat yourself. This medicine does not prevent heart attack or stroke. In fact, this medicine may increase the chance of a heart attack or stroke. The chance may increase with longer use of this medicine and in people who have heart disease. If you take aspirin to prevent heart attack or stroke, talk with your doctor or health pet care assistant. Do not take other medicines that contain aspirin, ibuprofen, or naproxen with this medicine. Side effects such as stomach upset, nausea, or ulcers may be more likely to occur. Many medicines available without a prescription should not be taken with this medicine. This medicine can cause ulcers and bleeding in the stomach and intestines at any time during treatment. Do not smoke cigarettes or drink alcohol. These increase irritation to your stomach and can make it more susceptible to damage from this medicine. Ulcers and bleeding can happen without warning symptoms and can cause . You may get drowsy or dizzy. Do not drive, use machinery, or do anything that needs mental alertness until you know how this medicine affects you. Do not stand or sit up quickly, especially if you are an older patient. This reduces the risk of dizzy or fainting spells. This medicine can cause you to bleed more easily. Try to avoid damage to your teeth and gums when you brush or floss your teeth. You have been given the following additional information: Chest Wall Pain, Costochondritis Naproxen Sodium Oral tablet (Electronically signed by Kristin Humphries A.R.N.P. 10/01/2016 22:58)
== END 2016-10-01 18:00 | disposition home or self-care (01) ==
LOC: ED SRH 15:26
DX: R07.89 Other chest pain (principal); F17.210 Nicotine dependence, cigarettes, uncomplicated; F12.10 Cannabis abuse, uncomplicated
CPT/HCPCS: 90074; 90100; 90616; 92610; 92720; 95059